=== PATIENT | female | born 1960 | race Caucasian/White ===

== ENCOUNTER 2021-08-11 08:04 | Day surgery (SDC) | payer MEDICAID ==
[2021-08-10 15:35] LABS: BASOPHILS # (AUTO) 0.1 X10'3 (0-0.2); BASOPHILS % (AUTO) 0.9 % (0-1); EOSINOPHILS # (AUTO) 0.3 X10'3 (0-0.9); EOSINOPHILS % (AUTO) 2.6 % (0-6); LYMPHOCYTES # (AUTO) 3.9 X10'3 (1.1-4.8); LYMPHOCYTES % (AUTO) 37.8 % (21-51); MEAN CORPUSCULAR HEMOGLOBIN 29.9 PG (27.0-31.0); MEAN CORPUSCULAR VOLUME 90.5 FL (78-98); MEAN PLATELET VOLUME 9.6 FL (7.4-10.4); MONOCYTES # (AUTO) 0.8 X10'3 (0-0.9); MONOCYTES % (AUTO) 7.5 % (2-12); NEUTROPHILS # (AUTO) 5.2 X10'3 (1.8-7.7); NEUTROPHILS % (AUTO) 51.2 % (42-75); PRE OP HEMATOCRIT 45.1 % (35.0-45.0); PRE OP HEMOGLOBIN 14.9 g/dL (12.0-16.0); PRE OP PLATELET COUNT 226 X10'3 (140-440); RED BLOOD COUNT 4.98 X10'6 (4.20-5.60); RED CELL DISTRIBUTION WIDTH 14.7 % (11.5-14.5)
[2021-08-10 15:49] LABS: ALBUMIN 3.6 G/DL (3.4-5.0); ALBUMIN/GLOBULIN RATIO 0.9 (1.1-1.5); ALKALINE PHOSPHATASE 59 IU/L (46-116); BLOOD UREA NITROGEN 11 MG/DL (7-18); BUN/CREATININE RATIO 15.7 (6.6-38.0); CALCIUM 9.2 MG/DL (8.5-10.1); CHLORIDE 107 MMOL/L (99-107); PRE OP ALT 19 U/L (30-65); PRE OP ANION GAP 7 (8-16); PRE OP AST 8 U/L (10-37); PRE OP BILIRUB, TOTAL 0.3 MG/DL (0.0-1.0); PRE OP GLUCOSE 100 MG/DL (70-104); PRE OP POTASSIUM 3.9 MMOL/L (3.4-5.1); PRE OP SODIUM 145 MMOL/L (135-145); TOTAL CARBON DIOXIDE 31.1 MMOL/L (24-32); TOTAL PROTEIN 7.4 G/DL (6.4-8.2); eGFR 85 ML/MIN
[~2021-08-11] VITALS: Ht 152.4 cm; Wt 86.2 kg
[2021-08-11] VITALS (11 sets, daily range): BP systolic 94–153; BP diastolic 70–96
[~2021-08-11 08:04] MED LIST: ALBU8HFA PO; INDOCYANINE GREEN 25 MG/10 ML VIAL IV ONE; albuterol 2.5 MG/3 ML nebule NEB ONE; cefazolin/dext.iso 2gm/100ml IV ONE; famotidine 20mg tablet PO ONE; meperidine/PF 25mg/ml syringe IV PRN; morphine 2 MG/ML inj. syringe IV PRN; morphine 4 MG/ML inj SYRINge IV PRN; ondansetron/PF 4mg/2ml inj IV PRN; proCHLORperazine 10 MG/2 ml inj IV PRN; ringers solution, lacted 1,000 ML IV SCH
[2021-08-11] MEDS ORDERED: propofol inj 20 ML IV ONE (10:30)
[2021-08-11] MEDS ORDERED: LIDOcaine 2% (20mg/ml) 5ml vial ONE (10:30)
[2021-08-11] MEDS ORDERED: BUPIVAcaine/PF 2.5mg/ml (0.25%) 10ml vial ONE (10:54)
[2021-08-11] MEDS ORDERED: LIDOcaine 1% 30ml preserv. free vial ONE (10:54)
[2021-08-11] MEDS ORDERED: fentaNYL/PF 50MCG/1 ML 2ML syringe ONE (10:59)
[2021-08-11] MEDS ORDERED: midazolam 1 mg/ML 2ml injection ONE (10:59)
[2021-08-11] MEDS ORDERED: acetaminophen 1,000mg/100ml IV 100 ML IV ONE (11:50)
[2021-08-11] MEDS ORDERED: neostigmine methylsulfate 1 MG/ML 10ml vial ONE (11:56)
[2021-08-11] MEDS ORDERED: glycopyrrolate 0.2mg/ml inj ONE (11:57)
[2021-08-11] MEDS ORDERED: oxyCODONE/APAP 5-325mg tablet PO PRN (12:10)
--- NOTE | 2021-08-11 12:10 | NUR ---
Received from OR via , accompanied by Anesthesiologist DR GALEAS and report given by Anesthesiolgist. PT PRESENTS WITH 20G RIGHT AC, ABD DRESSING DRY AND INTACT, VSS. Addendum: 08/11/21 at 1230 by Sofía Carter RN, RN Amended: Links added.
--- NOTE | 2021-08-11 13:40 | NUR ---
PT HAS MET DC CRITERIA, IV REMOVED, PT PAIN 12/24. DC INSTRUCTIONS REVIEWED WITH PT, PT VERBALIZED UNDERSTANDING WITH NO FURTHER QUESTIONS AT THIS TIME. PT REPORTS THAT SHE MIGHT NOT BE ABLE TO MAKE A FOLLOW UP APT [facility] BECAUSE SHE IS MOVING OUT OF THE [place] IN 1-2 WEEKS. PT TAKEN OUT IN A WHEELCHAIR, FAMILY MEMBER SKY MET PT TO TAKE HER HOME. Addendum: 08/11/21 at 1428 by Sofía Carter RN, RN Amended: Links added.
--- NOTE | 2021-08-11 13:40 | NUR ---
PT REPORTS THAT SHE MIGHT NOT BE ABLE TO FOLLOW UP WITH DR LAURENT BECAUSE SHE IS MOVING OUT OF STATE IN 2 WEEKS. Addendum: 08/11/21 at 1425 by Sofía Carter RN, RN Amended: Links added.
== END 2021-08-11 13:40 | disposition home or self-care (01) ==
LOC: PAS 08:04
PROVIDERS: ATTEND Surgery
DX: K80.10 Calculus of gallbladder with chronic cholecystitis without obstruction (principal); J44.9 Chronic obstructive pulmonary disease, unspecified; E11.9 Type 2 diabetes mellitus without complications; E66.9 Obesity, unspecified; Z68.37 Body mass index [BMI] 37.0-37.9, adult; I10 Essential (primary) hypertension; Z88.0 Allergy status to penicillin; Z79.899 Other long term (current) drug therapy; Z98.890 Other specified postprocedural states; Z20.822 Contact with and (suspected) exposure to COVID-19; F17.210 Nicotine dependence, cigarettes, uncomplicated; Z82.49 Family history of ischemic heart disease and other diseases of the circulatory system
CPT/HCPCS: 36415; 47563; 71046; 80053; 82948; 85025; 87635; 93005; 94640; 94760; C9803; J0131; J0780; J2001; J2250; J2405; J2704; J2710; J3010; J3490; J7120; S2900; Z7506; Z7508; Z7512; A4215; A4618; A7000